=== PATIENT | male | born 1995 | race Caucasian/White ===

== ENCOUNTER 2017-04-09 17:17 | Emergency (ER) | payer SELFPAY ==
[2017-04-09 17:43] VITALS: TEMP 99.7
--- NOTE | 2017-04-09 18:17 | EDPHY ---
H & P Stated Complaint: pt c/o not feeling well, dizziness Time Seen by Provider: 04/09/17 18:17 - Personal History Current Tetanus Diphtheria and Acellular Pertussis (TDAP): Yes - Medical/Surgical History Hx Asthma: No Hx Chronic Respiratory Disease: No Hx Diabetes: No Hx Cardiac Disease: No Hx Renal Disease: No Hx Cirrhosis: No Hx Alcoholism: No Hx HIV/AIDS: No Hx Splenectomy or Spleen Trauma: No Other PMH: denies - Social History Smoking Status: Never smoked Constitutional: Initial Vital Signs Temperature (C) 37.6 C 04/09/17 17:41 Heart Rate 85 04/09/17 17:41 Respiratory Rate 20 04/09/17 17:41 Blood Pressure 144/48 H 04/09/17 17:41 O2 Sat (%) 98 04/09/17 17:41 O2 Delivery Mode Room Air Allergies/Adverse Reactions: No Known Allergies Allergy (Unverified 04/09/17 17:40) Home Medications: Medication Instructions Recorded Dramamine 04/09/17 Ibuprofen 04/09/17 Medical Decision Making ED Course/Re-evaluation: CHIEF COMPLAINT: HISTORY OF PRESENT ILLNESS: must have 4 elements: Location, Quality, Severity , Duration, Timing, Context, Modifying Factors, Associated Signs and Symptoms REVIEW OF SYSTEMS: A 10 point review of systems was performed and is negative with the exception of the elements mentioned in the history of present illness. PHYSICAL EXAM: HR, BP, O2 Sat, RR. Temp noted General Appearance: Alert, well hydrated, appropriate, and non-toxic appearing. Head: Atraumatic without scalp tenderness or obvious injury Eyes: Pupils equal, round, reactive to light and accommodation, EOMI, no trauma , no injection. Ears: Clear bilaterally, no perforation, normal landmarks Nose: Atraumatic, no rhinorrhea, clear. Throat: There is no erythema or exudates, no lesions, normal tonsils, mucus membranes moist. Neck: Supple, 2+ carotid upstroke, nontender, no lymphadenopathy. Respiratory: No retractions, no distress, no wheezes, and no accessory muscle use. Lungs are clear to auscultation bilaterally. Cardiovascular: Regular rate and rhythm, no murmurs, rubs, or gallops. Bilateral carotid, radial, dorsalis pedis, and posterior tibial pulses intact. Good capillary refill all extremities. Gastrointestinal: Abdomen is soft, nontender, non-distended, no masses, no rebound, no guarding, no peritoneal signs. Musculoskeletal: Normal active ROM of all extremities, atraumatic. Neurological: Alert, appropriate, and interactive. The patient has normal DTRs and non-focal cranial nerves, motor, sensory, and cerebellar exam. Skin: No rashes, good turgor, no nodules on palpation. Past medical history: Past surgical history: Family history: Social history: DIAGNOSTICS/PROCEDURES/CRITICAL CARE TIME: DIFFERENTIAL DIAGNOSIS: MEDICAL DECISION MAKING: Departure - Departure Condition: Good Referrals: NONE *PRIMARY CARE P,. [Primary Care Provider] - As per Instructions
--- NOTE | 2017-04-09 18:45 | CPEKG ---
Heart Rate: 75 RR Interval: 800 P-R Interval: 140 QRSD Interval: 94 QT Interval: 376 QTC Interval: 420 P Hiram: 20 QRS Hiram: 92 T Wave Hiram: 44 EKG Severity - BORDERLINE ECG - EKG Impression: SINUS RHYTHM EKG Impression: BORDERLINE RIGHT AXIS DEVIATION Electronically Signed By: Lucio Navas 09-Apr-2017 18:49:15
--- NOTE | 2017-04-09 18:47 | EDPHY ---
H & P Time Seen by Provider: 04/09/17 18:17 HPI/ROS: CHIEF COMPLAINT: Chest contusion, almost passed out HISTORY OF PRESENT ILLNESS: This 22-year-old man is visiting from [place]. He flew in yesterday and then went for a hike today. It was very icy and around noon he of fell down while hiking for the 1st time and smacked the left side of his chest and back on the ground. Immediately afterwards he had some anterior chest discomfort as well as pain in his upper back where he impacted the ground. Over the rest of the hike he continued to fall several additional times , and felt like he had some discomfort in his chest when he tried to take a deep breath. At 5:00 p.m. he went to eat after taking some ibuprofen and felt hot, felt the room was spinning and felt like there was "hissing "in his ears and got up to go to the bathroom and almost passed out was caught by his friend. Apparently he has some very mild chest discomfort that is worse with deep breath. Does not radiate. REVIEW OF SYSTEMS: Eye: no change in vision ENT: no sore throat Cardiac: HPI Pulmonary: No coughing, no hemoptysis Abdomen: no vomiting, diarrhea, abdominal pain Musculoskeletal: Upper left chest and back pain but no neck pain. No leg swelling. Skin: no rash Neuro: no headache Constitutional: no fever : no urinary symptoms A comprehensive 10 point review of systems is otherwise negative aside from elements mentioned in the history of present illness. PAST MEDICAL HISTORY: Negative Family history negative for venous thromboembolism Social history: Supposed to fly back to [place] tonight, here with his sister General Appearance: Alert and conversant, cooperative. Eyes: No scleral icterus. ENT, Mouth: Normal mucous membranes. Respiratory: Normal respiratory effort, breath sounds equal, lungs are clear to auscultation. No crepitus and no splinting. Cardiovascular: Regular rate and rhythm. Gastrointestinal: Abdomen is soft and non tender. Neurological: Alert and oriented x3. Normally conversant. Face symmetric, normal movement and sensation in all extremities. Skin: Warm and dry, no rashes. Musculoskeletal: No peripheral edema and no joint swelling. No calf tenderness. Psychiatric: Not agitated. Emergency Department course/MDM: I think pulmonary embolism would be unlikely as the patient clearly developed this chest symptoms after falling and hitting his chest on the ground. He does not have signs or symptoms of DVT here and has essentially normal respiratory effort and heart rate an oxygen saturation. More likely he had chest wall contusion or got the wind knocked out of him , followed by a vasovagal episode at the restaurant. I think malignant dysrhythmia would be unlikely. Smoking Status: Never smoked Constitutional: Initial Vital Signs Temperature (C) 37.6 C 04/09/17 17:41 Heart Rate 85 04/09/17 17:41 Respiratory Rate 20 04/09/17 17:41 Blood Pressure 144/48 H 04/09/17 17:41 O2 Sat (%) 98 04/09/17 17:41 O2 Delivery Mode Room Air Allergies/Adverse Reactions: No Known Allergies Allergy (Unverified 04/09/17 17:40) Home Medications: Medication Instructions Recorded Dramamine 04/09/17 Ibuprofen 04/09/17 Medical Decision Making - Diagnostics EKG Interpretation: 12-lead EKG interpreted by me; official reading is in trace master. My interpretation is sinus rhythm rate 75 with normal intervals. Imaging Results: Imaging Impressions Chest X-Ray 04/09/17 18:28 Impression: There is no acute abnormality identified. Differential Diagnosis: Differential diagnosis considered for chest pain including but not limited to myocardial ischemia, aortic dissection, pericarditis, pulmonary embolus, chest wall pain, pleural inflammation and pulmonary infectious causes. Departure - Departure Disposition: Home, Routine, Self-Care Clinical Impression: Vasovagal syncope Chest wall contusion Qualifiers: Encounter type: initial encounter Laterality: left Qualified Code(s): S20.212A - Contusion of left front wall of thorax, initial encounter Condition: Good Instructions: Syncope (ED), Chest Wall Pain (ED) Referrals: Estefanía Cuellar DO [Doctor of Osteopathy] - As per Instructions
[2017-04-09 19:06] VITALS: BP 165/80; PULSE 84; RESP 16; O2SAT 97
== END 2017-04-09 19:06 | disposition home or self-care (01) ==
DX: S20.212A Contusion of left front wall of thorax, initial encounter (principal); R55 Syncope and collapse; W18.30XA Fall on same level, unspecified, initial encounter; Y93.01 Activity, walking, marching and hiking